=== PATIENT | female | born 1960 | race Caucasian/White ===

== ENCOUNTER 2018-03-24 13:00 | Emergency (ER) | payer BC ==
[~2018-03-24] VITALS: Ht 165.1 cm; Wt 95.0 kg
[2018-03-24] MEDS ORDERED: ASPIRIN325 MG PO (16:23)
[2018-03-24 16:40] VITALS: BP 140/72
== END 2018-03-24 16:41 | disposition home or self-care (01) ==
LOC: EME 13:00
DX: I82.612 Acute embolism and thrombosis of superficial veins of left upper extremity (principal); I10 Essential (primary) hypertension; E78.5 Hyperlipidemia, unspecified; Z86.718 Personal history of other venous thrombosis and embolism
CPT/HCPCS: 93971; 99281; 99284